=== PATIENT | male | born 1965 | race American Indian/Alaskan Native ===

== ENCOUNTER 2018-02-11 17:51 | Emergency (ER) | payer SELFPAY ==
[2018-02-11 18:13] VITALS: BMI 24.4
[2018-02-11 18:24] VITALS: TEMP 98.1; O2SAT 98
--- NOTE | 2018-02-11 18:28 | ED PDOC ---
Arrival/HPI - General Chief Complaint: Lower Extremity Problem/Injury Time Seen by Provider: 02/11/18 17:56 Historian: Patient - History of Present Illness Narrative History of Present Illness (Text): 02/11/18 18:19 52yo male with pmhx of hypertension bib EMS with complaint of right knee pain s/ p trauma. States he heard a popping sound when he stepped off a sidewalk while running, and started having pain. He denies previous injury. Denies any other complaint. Past Medical History - Provider Review Nursing Documentation Reviewed: Yes - Cardiac Hx Cardiac Disorders: Yes Hx Hypertension: Yes - Pulmonary Hx Respiratory Disorders: No - Neurological Hx Neurological Disorder: No - HEENT Hx HEENT Disorder: No - Renal Hx Renal Disorder: No - Endocrine/Metabolic Hx Endocrine Disorders: No - Hematological/Oncological Hx Blood Disorders: No - Integumentary Hx Dermatological Disorder: No - Musculoskeletal/Rheumatological Hx Musculoskeletal Disorders: No - Gastrointestinal Hx Gastrointestinal Disorders: No - Genitourinary/Gynecological Hx Genitourinary Disorders: No - Psychiatric Hx Psychophysiologic Disorder: No Hx Substance Use: Yes - Surgical History Hx Tonsillectomy: Yes - Anesthesia Hx Anesthesia: Yes Hx Anesthesia Reactions: No Family/Social History - Physician Review Nursing Documentation Reviewed: Yes Family/Social History: Unknown Family HX Smoking Status: Heavy Smoker > 10 Cigarettes Daily Hx Alcohol Use: Yes Frequency of alcohol use: Few days per week Hx Substance Use: Yes Substance used: denies Allergies/Home Meds Allergies/Adverse Reactions: Allergies No Known Allergies Allergy (Verified 02/11/18 18:14) Review of Systems - Physician Review All systems were reviewed & negative as marked: Yes - Review of Systems Constitutional: Normal Eyes: Normal ENT: Normal Respiratory: Normal Cardiovascular: Normal Gastrointestinal: Normal Genitourinary Male: Normal Musculoskeletal: Arthralgias (Right knee pain) Skin: Normal Neurological: Normal Endocrine: Normal Hemo/Lymphatic: Normal Psychiatric: Normal Physical Exam Vital Signs Reviewed: Yes Vital Signs Temp Pulse Resp BP Pulse Ox 02/11/18 18:13 98.1 F 72 16 132/80 98 Temperature: Afebrile Blood Pressure: Normal Pulse: Regular Respiratory Rate: Normal Appearance: Positive for: Well-Appearing, Non-Toxic, Comfortable Pain Distress: None Mental Status: Positive for: Alert and Oriented X 3 - Systems Exam Head: Present: Atraumatic, Normocephalic Pupils: Present: PERRL Extroacular Muscles: Present: EOMI Conjunctiva: Present: Normal Mouth: Present: Moist Mucous Membranes Neck: Present: Normal Range of Motion Respiratory/Chest: Present: Clear to Auscultation, Good Air Exchange. No: Respiratory Distress, Accessory Muscle Use Cardiovascular: Present: Regular Rate and Rhythm, Normal S1, S2. No: Murmurs Abdomen: No: Tenderness, Distention, Peritoneal Signs Back: Present: Normal Inspection Upper Extremity: Present: Normal Inspection. No: Cyanosis, Edema Lower Extremity: Present: NORMAL PULSES, Tenderness (Over medial and posterior right knee). No: Edema, Normal ROM (Limited on flexion secondary to pain), Swelling Neurological: Present: GCS=15, CN II-XII Intact, Speech Normal Skin: Present: Warm, Dry, Normal Color. No: Rashes Psychiatric: Present: Alert, Oriented x 3, Normal Insight, Normal Concentration Medical Decision Making ED Course and Treatment: 02/11/18 19:38 PT's pain was controlled in ED. Right knee xray - No acute fracture Knee immobilizer placed Pt advised to RICE knee Crutches given Referred to ortho - RAD Interpretation Radiology Orders: 02/11/18 18:14 KNEE RIGHT 2 VIEWS (AP & LAT) [RAD] Stat - Medication Orders Current Medication Orders: Discontinued Medications Ketorolac Tromethamine (Toradol) 60 mg IM STAT STA Stop: 02/11/18 18:20 Last Admin: 02/11/18 18:43 Dose: 60 mg MAR Pain Assessment Document 02/11/18 18:43 SF (Rec: 02/11/18 18:43 [id number]) Pain Reassessment Is this a pain reassessment? Yes Sleep Is patient sleeping during reassessment? No Presence of Pain Presence of Pain Yes Pain Scale Used Pain Scale Used Numeric Location Left, Right or Bilateral Right Pain Location Body Site Knee IM Administration Charges Document 02/11/18 18:43 SF (Rec: 02/11/18 18:43 SF [email or web address]) Injection Site MAR Injection Site Left Deltoid Charges for Administration # of IM Administrations 1 Disposition/Present on Arrival - Present on Arrival Any Indicators Present on Arrival: No History of DVT/PE: No History of Uncontrolled Diabetes: No Urinary Catheter: No History of Decub. Ulcer: No History Surgical Site Infection Following: None - Disposition Have Diagnosis and Disposition been Completed?: Yes Diagnosis: Knee sprain Disposition: HOME/ ROUTINE Disposition Time: 19:40 Patient Plan: Discharge Condition: STABLE Discharge Instructions (ExitCare): Knee Sprain (DC) Additional Instructions: Rest, Ice, compress and elevate Follow up with orthopedist Return to ED for any new or worsening symptoms Prescriptions: Naproxen [Naprosyn] 500 mg PO BID #20 tablet Referrals: Henrry Sood DO [Staff Provider] - Follow up with primary Forms: [email or web address] (Bhutanese)
[2018-02-11 20:08] VITALS: BP 128/78; PULSE 70; RESP 17
--- NOTE | 2018-02-12 10:58 | RAD ---
Date of service: 02/11/2018 PROCEDURE: Right Knee Radiographs. HISTORY: Knee pain post trauma COMPARISON: None. FINDINGS: BONES: No evidence of acute displaced fracture nor dislocation. The osseous structures appear intact. . JOINTS: No significant osteoarthritis. JOINT EFFUSION: Suspect small suprapatellar OTHER FINDINGS: Questionable mild infiltration changes within the medial subcutaneous tissues IMPRESSION: No acute fractures.
== END 2018-02-11 20:00 | disposition home or self-care (01) ==
LOC: ED 17:51
DX: S83.91XA Sprain of unspecified site of right knee, initial encounter (principal); X50.0XXA Overexertion from strenuous movement or load, initial encounter; Y93.02 Activity, running; Y92.480 Sidewalk as the place of occurrence of the external cause
CPT/HCPCS: 73560; 96372; 99284; J1885